=== PATIENT | female | born 1970 | race Caucasian/White ===

== ENCOUNTER 2018-02-25 06:11 | Inpatient (IN) | payer MEDICAID ==
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
[2018-02-25] MEDS ORDERED: NS 1,000 ML IV ONE (06:25)
[2018-02-25] MEDS ORDERED: CHLORDIAZEPOXIDE 25MG PREPK#6 BTL TAKEHOME ONE (06:26)
[2018-02-25] MEDS ORDERED: chlordiazePOXIDE 25 MG CAP PO ONE (06:26)
[2018-02-25] MEDS ORDERED: LORazepam 2 MG/ML INJ IVP ONE ×2 (06:26→06:56)
[2018-02-25] MEDS ORDERED: FOLIC ACID 1 MG TAB PO ONE (06:26)
[2018-02-25] MEDS ORDERED: ONDANSETRON 4 MG/2 ML VIAL IVP ONE (06:37)
[2018-02-25] MEDS ORDERED: ONDANSETRON 4 MG/2 ML VIAL ONE (06:37)
[2018-02-25 06:41] LABS: PLATELET COUNT 122 10^3/uL (150-400)
[2018-02-25] MEDS ORDERED: THIAMINE HCL 200 MG/2 ML VIAL IV ONE (06:49)
[2018-02-25] MEDS ORDERED: THIAMINE HCL 100 MG TAB ONE (06:52)
[2018-02-25] MEDS ORDERED: THIAMINE HCL 100 MG TAB PO ONE (06:52)
[2018-02-25] MEDS ORDERED: ONDANSETRON 4 MG/2 ML VIAL IVP PRN (06:57)
[2018-02-25] MEDS ORDERED: FLUMAZENIL 0.5 MG/5 ML MDV IVP PRN (06:59)
[2018-02-25] MEDS ORDERED: NS 1,000 ML IV SCH (07:00)
[2018-02-25] MEDS ORDERED: DEXMEDETOMIDINE HCL 400 MCG in NS 100 ML IV SCH (07:00)
[2018-02-25 07:14] LABS: CREATINE KINASE 362 IU/L (0-156); INR 1.02 (0.83-1.16); PROTIME(PATIENT) 13.6 SEC (12.0-15.0)
[2018-02-25] MEDS ORDERED: PROTOCOL POTASSIUM 1 DOSE MISC PRN (07:35)
[2018-02-25] MEDS ORDERED: PROTOCOL MAGNESIUM 1 DOSE IV PRN (07:35)
[2018-02-25] MEDS ORDERED: PROTOCOL K PHOSPHATE 1 DOSE IV PRN (07:35)
[2018-02-25] MEDS: FAMOTIDINE 20 MG/NACL 50 ML IV SCH ×2 (07:40→20:52)
[2018-02-25] MEDS: LORazepam 2 MG/ML INJ IVP PRN ×4 (08:44→20:59)
[2018-02-25] MEDS: NS W/ 20 KCl/L 1,000 ML IV SCH ×2 (08:51→20:51)
[2018-02-25] MEDS ORDERED: THIAMINE HCL 500 MG in NS 100 ML IV SCH ×2 (09:00→14:00)
[2018-02-25] MEDS ORDERED: ACETAMINOPHEN 325 MG TAB PO PRN (10:24)
[2018-02-25] MEDS: DEXMEDETOMIDINE HCL 400 MCG in NS 100 ML IV SCH ×2 (10:55→20:51)
[2018-02-25] MEDS: ENOXAPARIN 40 MG/0.4 ML SYR SC SCH (10:55)
[2018-02-25] MEDS: LIDOCAINE 4%/MENTHOL 1% PATCH TD SCH (10:56)
[2018-02-25] MEDS: SERTRALINE HCL 50 MG TAB PO SCH (10:56)
[2018-02-25] MEDS: LEVOTHYROXINE 100 MCG TAB PO SCH (11:07)
[2018-02-25] MEDS: LORazepam 2 MG/ML INJ IVP SCH ×2 (13:37→18:32)
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
[2018-02-25] MEDS: POTASSIUM CL 20 MEQ TAB PO SCH (15:09)
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
[2018-02-25] MEDS ORDERED: LISINOPRIL 2.5 MG TAB PO SCH (17:30)
[2018-02-25] MEDS: LISINOPRIL 5 MG TAB PO SCH (18:32)
[2018-02-25] MEDS: oxyCODONE IR 5 MG TAB PO PRN (18:44)
[2018-02-25] MEDS: PATCH REMOVAL 1 EA PATCH TD SCH (21:26)
[2018-02-25] MEDS: traZODone 100 MG TAB PO PRN (23:16)
[2018-02-26] MEDS: LORazepam 2 MG/ML INJ IVP SCH ×5 (00:22→21:26)
[2018-02-26] MEDS: oxyCODONE IR 5 MG TAB PO PRN (01:10)
[2018-02-26] MEDS ORDERED: DIAZEPAM 5 MG/ML 1 ML SYR IVP ONE (04:25)
[2018-02-26] MEDS: LEVOTHYROXINE 100 MCG TAB PO SCH (07:48)
[2018-02-26] MEDS: FAMOTIDINE 20 MG/NACL 50 ML IV SCH ×2 (08:09→20:25)
[2018-02-26] MEDS: ENOXAPARIN 40 MG/0.4 ML SYR SC SCH (08:09)
[2018-02-26] MEDS: THIAMINE HCL 100 MG TAB PO SCH (08:10)
[2018-02-26] MEDS: LIDOCAINE 4%/MENTHOL 1% PATCH TD SCH (08:10)
[2018-02-26] MEDS: POTASSIUM CL 20 MEQ TAB PO SCH (08:11)
[2018-02-26] MEDS: LISINOPRIL 5 MG TAB PO SCH (08:11)
[2018-02-26] MEDS: SERTRALINE HCL 50 MG TAB PO SCH (08:11)
[2018-02-26] MEDS: DEXMEDETOMIDINE HCL 400 MCG in NS 100 ML IV SCH (08:21)
[2018-02-26] MEDS ORDERED: MAGNESIUM SULF 2 GM/WATER 50 ML IV ONE (08:35)
[2018-02-26] MEDS ORDERED: DIAZEPAM 5 MG/ML 1 ML SYR IVP PRN (09:58)
[2018-02-26] MEDS: LORazepam 2 MG/ML INJ IVP PRN ×2 (12:56→20:19)
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
[2018-02-26 16:18] LABS: PLATELET COUNT 92 10^3/uL (150-400)
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
[2018-02-26] MEDS: NS W/ 20 KCl/L 1,000 ML IV SCH (18:14)
[2018-02-26] MEDS: PATCH REMOVAL 1 EA PATCH TD SCH (20:25)
[2018-02-27 03:57] LABS: PLATELET COUNT 103 10^3/uL (150-400)
[2018-02-27] MEDS: LORazepam 2 MG/ML INJ IVP SCH ×4 (05:28→21:20)
[2018-02-27] MEDS: LEVOTHYROXINE 100 MCG TAB PO SCH (05:29)
[2018-02-27] MEDS: POTASSIUM CL 20 MEQ TAB PO SCH (08:35)
[2018-02-27] MEDS: THIAMINE HCL 100 MG TAB PO SCH (08:35)
[2018-02-27] MEDS: SERTRALINE HCL 50 MG TAB PO SCH (08:35)
[2018-02-27] MEDS: ENOXAPARIN 40 MG/0.4 ML SYR SC SCH (08:35)
[2018-02-27] MEDS: FAMOTIDINE 20 MG/NACL 50 ML IV SCH (08:36)
[2018-02-27] MEDS: LIDOCAINE 4%/MENTHOL 1% PATCH TD SCH (08:36)
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
[2018-02-27] MEDS ORDERED: D5W 1/2 NS 1,000 ML IV SCH (11:00)
[2018-02-27] MEDS: NS W/ 20 KCl/L 1,000 ML IV SCH (11:04)
[2018-02-27] MEDS: IBUPROFEN 600 MG TAB PO PRN ×2 (12:26→21:02)
[2018-02-27] MEDS: LORazepam 2 MG/ML INJ IVP PRN ×4 (13:46→23:14)
[2018-02-27] MEDS: oxyCODONE IR 5 MG TAB PO PRN (14:19)
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
[2018-02-27] MEDS: FAMOTIDINE 20 MG TAB PO SCH (21:02)
[2018-02-27] MEDS: traZODone 100 MG TAB PO PRN (21:02)
[2018-02-27] MEDS: PATCH REMOVAL 1 EA PATCH TD SCH (21:03)
[2018-02-28] MEDS: DEXMEDETOMIDINE HCL 400 MCG in NS 100 ML IV SCH (03:53)
[2018-02-28] MEDS: LORazepam 2 MG/ML INJ IVP SCH ×2 (03:53→09:49)
[2018-02-28] MEDS: LORazepam 2 MG/ML INJ IVP PRN ×6 (04:29→22:07)
[2018-02-28] MEDS: LEVOTHYROXINE 100 MCG TAB PO SCH (06:48)
[2018-02-28] MEDS: ENOXAPARIN 40 MG/0.4 ML SYR SC SCH (08:05)
[2018-02-28] MEDS: FAMOTIDINE 20 MG TAB PO SCH ×2 (08:05→19:59)
[2018-02-28] MEDS: SERTRALINE HCL 50 MG TAB PO SCH (08:05)
[2018-02-28] MEDS: LIDOCAINE 4%/MENTHOL 1% PATCH TD SCH (08:06)
[2018-02-28] MEDS: THIAMINE HCL 100 MG TAB PO SCH (08:06)
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
[2018-02-28] MEDS ORDERED: ACET/CAFFEINE/BUTA FIORICET 1 EACH TAB PO PRN (11:04)
[2018-02-28] MEDS: LORazepam 1 MG TAB PO PRN (13:41)
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
[2018-02-28] MEDS ORDERED: LIDOCAINE 2% JELLY 20 ML (UROJECT) UR PRN (18:31)
[2018-02-28] MEDS: traZODone 100 MG TAB PO SCH (19:59)
[2018-02-28] MEDS: PATCH REMOVAL 1 EA PATCH TD SCH (21:01)
[2018-02-28] MEDS: oxyCODONE IR 5 MG TAB PO PRN (23:08)
[2018-02-28] MEDS ORDERED: DIAZEPAM 5 MG/ML 1 ML SYR IVP ONE (23:27)
[2018-03-01] MEDS: LORazepam 2 MG/ML INJ IVP PRN ×8 (01:30→20:26)
[2018-03-01] MEDS ORDERED: HALOPERIDOL LACT 5 MG/ML INJ IVP ONE (05:10)
[2018-03-01] MEDS: LEVOTHYROXINE 100 MCG TAB PO SCH (05:21)
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
[2018-03-01] MEDS: LIDOCAINE 4%/MENTHOL 1% PATCH TD SCH (09:18)
[2018-03-01] MEDS: FAMOTIDINE 20 MG TAB PO SCH ×2 (09:35→20:26)
[2018-03-01] MEDS: ENOXAPARIN 40 MG/0.4 ML SYR SC SCH (09:35)
[2018-03-01] MEDS: SERTRALINE HCL 50 MG TAB PO SCH (09:35)
[2018-03-01] MEDS: THIAMINE HCL 100 MG TAB PO SCH (09:35)
[2018-03-01] MEDS: oxyCODONE IR 5 MG TAB PO PRN (09:40)
--- NOTE | 2018-03-01 10:04 | HOSPPROG ---
Hospitalist Progress Note Assessment/Plan: 47 yo F p/w acute encephalopathy 2/2 acute alcohol withdrawal Plan: # Acute encephalopathy - near baseline today # Acute alcohol withdrawal. EtOH 57, required precedex, weaned off last night. CIWA 7 this am. -cont CIWA, prn ativan # Alcohol dependence. 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 2/2 alcoholism, recommend outpt f/u # Acute metabolic acidosis. 2/2 recent alcohol intox and ketoacidosis, resolved # Hypothyroidism. Cont home Rx # Hypotension. resolved, likely 2/2 hypovolemia and ACEi, discontinued # Acute rib fractures. L side, traumatic, IS # Dysuria. UA neg, may be urethral irritation from snyder, since d/c'd Diet. As kristi, monitor for aspiration PPx. High risk, lovenox 40 Code. Full Dispo. Possible transfer to med/surg today and if remains stable, may be ready for dc in am Subjective: Pt sleeping, received ativan this am for CIWA 7. Denies pain. No fevers. Taking po. Objective: Vital Signs Temp Pulse Resp BP Pulse Ox 37.0 C 88 20 114/76 95 03/01/18 08:00 03/01/18 08:00 03/01/18 08:00 03/01/18 08:00 03/01/18 08:00 Laboratory Results 02/27/18 03:40 02/27/18 03:40 02/28/18 03/01/18 03/02/18 05:59 05:59 05:59 Intake Total 4616 1850 Output Total 1100 Balance 3516 1850 PT 13.6 SEC (12.0-15.0) 02/25/18 06:34 INR 1.02 (0.83-1.16) 02/25/18 06:34 - Physical Exam Constitutional: no apparent distress Eyes: PERRL Ears, Nose, Mouth, Throat: moist mucous membranes Cardiovascular: regular rate and rhythym Respiratory: no respiratory distress, clear to auscultation Gastrointestinal: normoactive bowel sounds, soft, non-tender abdomen Skin: warm Musculoskeletal: full muscle strength Neurologic: AAOx3 Psychiatric: interacting appropriately ICD10 Worksheet Patient Problems: Problems Problem Status Onset Alcohol withdrawal Acute
[2018-03-01] MEDS ORDERED: NYSTATIN 15 GM CR TUBE TP SCH (10:30)
[2018-03-01] MEDS: LORazepam 1 MG TAB PO PRN (11:55)
[2018-03-01] MEDS: traZODone 100 MG TAB PO SCH (20:26)
[2018-03-01] MEDS: PATCH REMOVAL 1 EA PATCH TD SCH (20:35)
[2018-03-02] MEDS: LORazepam 1 MG TAB PO PRN (03:35)
[2018-03-02] MEDS: LEVOTHYROXINE 100 MCG TAB PO SCH (05:12)
[2018-03-02] MEDS: LIDOCAINE 4%/MENTHOL 1% PATCH TD SCH (07:40)
[2018-03-02] MEDS: SERTRALINE HCL 50 MG TAB PO SCH (07:41)
[2018-03-02] MEDS: FAMOTIDINE 20 MG TAB PO SCH (07:41)
[2018-03-02] MEDS: THIAMINE HCL 100 MG TAB PO SCH (07:41)
[2018-03-02] MEDS: ENOXAPARIN 40 MG/0.4 ML SYR SC SCH (07:41)
[2018-03-02 08:49] VITALS: BP 115/70
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
== END 2018-03-02 11:48 | disposition home or self-care (01) | DRG 775 ==
LOC: EDUNIT# → UNDOADMIN 07:08 → F2N 08:12
PROVIDERS: ADMIT Family Medicine; ATTEND Hospitalist
PROC: HZ2ZZZZ Detoxification Services for Substance Abuse Treatment (ICD-10-PCS; principal; 2018-02-25)
DX: F10.231 Alcohol dependence with withdrawal delirium (principal); G31.2 Degeneration of nervous system due to alcohol; D61.818 Other pancytopenia; E87.2 Acidosis; Y90.2 Blood alcohol level of 40-59 mg/100 ml; E03.9 Hypothyroidism, unspecified; S22.32XA Fracture of one rib, left side, initial encounter for closed fracture; V49.9XXA Car occupant (driver) (passenger) injured in unspecified traffic accident, initial encounter; Z98.84 Bariatric surgery status; Z91.040 Latex allergy status
CPT/HCPCS: 80307; 92523-GN; 97116-GP; 97161-GP; 97165-GO; 97530-GO; 97535-GO; G0480; J1630; J1650; J2060; J2405; J3360; J3411; J3475